=== PATIENT | female | born 1975 | race African-American/Black ===

== ENCOUNTER 2020-10-14 12:14 | Outpatient (REF) | payer OTHER, SELFPAY ==
--- NOTE | 2020-10-14 12:22 | XR_ITS ---
EXAMINATION: XR CHEST CLINICAL INFORMATION: Chest pain COMPARISON: Chest radiographs 11/04/2019, 09/09/2018 TECHNIQUE: 2 views of the chest were obtained. FINDINGS: The lungs are clear. There is no pneumothorax, airspace consolidation, pleural reaction, or effusion. The heart is normal in size. The costophrenic sulci are clear. The hilar and mediastinal contours and visualized bony structures are unremarkable. XR/XR chest 2V IMPRESSION: Unremarkable examination.
== END 2020-10-14 12:15 | disposition home or self-care (01) ==
LOC: HO.XRAY 12:14
PROVIDERS: PCP Student in an Organized Health Care Education/Training Program; Visit Provider Pediatrics
DX: R07.9 Chest pain, unspecified (principal)
CPT/HCPCS: 71046

== ENCOUNTER 2021-04-21 10:38 | Outpatient (REF) | payer OTHER, SELFPAY ==
[2021-04-21 11:57] LABS: Estimated Average Glucose 111 mg/dL; Hemoglobin A1c % 5.5 %
[2021-04-21 12:15] LABS: Alanine Aminotransferase 10 U/L (0-31); Albumin Level 4.3 g/dL (3.5-5.0); Alkaline Phosphatase 65 U/L (39-117); Anion Gap 12 (12-20); Aspartate Amino Transferase 17 U/L (5-31); Bilirubin Direct 0.2 mg/dL (0.0-0.5); Bilirubin Total 0.7 mg/dL (0.0-1.0); Blood Urea Nitrogen 12 mg/dL (9-16); Carbon Dioxide 27 mmol/L (22-29); Chloride 106 mmol/L (96-108); Cholesterol 178 mg/dL; Estimated Glomerular Filt Rate > 60; Glucose Random 91 mg/dL (60-115); HDL Cholesterol 55 mg/dL; LDL Cholesterol Calculated 110 mg/dl; Potassium 4.3 mmol/L (3.3-5.1); Sodium 141 mmol/L (135-145); Total Protein 7.6 g/dL (6.5-8.0); Triglycerides 66 mg/dL
== END 2021-04-21 10:39 | disposition home or self-care (01) ==
LOC: HO.LAB 10:38
PROVIDERS: PCP Student in an Organized Health Care Education/Training Program; Visit Provider Student in an Organized Health Care Education/Training Program
DX: Z83.3 Family history of diabetes mellitus (principal)
CPT/HCPCS: 36415; 80048; 80061; 80076; 83036

== ENCOUNTER 2021-08-17 09:49 | Outpatient (REF) | payer OTHER, SELFPAY ==
[2021-08-18 08:16] LABS: HIV AB/AG Nonreactive (Nonreactive); HIV Num 1 0.07 S/CO (0.00-0.99)
[2021-08-18 08:39] LABS: Syphilis Screen Nonreactive (Nonreactive)
== END 2021-08-17 09:50 | disposition home or self-care (01) ==
LOC: HO.LAB 09:49
PROVIDERS: Absent Provider Student in an Organized Health Care Education/Training Program; PCP Student in an Organized Health Care Education/Training Program; Visit Provider General Practice
DX: Z11.3 Encounter for screening for infections with a predominantly sexual mode of transmission (principal); Z11.4 Encounter for screening for human immunodeficiency virus [HIV]
CPT/HCPCS: 36415; 86780; 87389

== ENCOUNTER 2021-12-05 11:21 | Outpatient (REF) | payer OTHER, SELFPAY ==
--- NOTE | ~2021-12-05 | XR_ITS ---
EXAMINATION: XR CHEST CLINICAL INFORMATION: Contact with an suspected exposure to Covid 19 COMPARISON: Chest 10/14/2020 TECHNIQUE: 2 views of the chest were obtained. FINDINGS: The lungs are well-expanded and clear of acute pneumonic process. Heart size and pulmonary vascularity is normal. No gross bony abnormality seen. XR/XR chest 2V IMPRESSION: Unremarkable chest exam
== END 2021-12-05 11:22 | disposition home or self-care (01) ==
LOC: HO.XRAY 11:21
PROVIDERS: PCP Student in an Organized Health Care Education/Training Program; Visit Provider Student in an Organized Health Care Education/Training Program
DX: Z20.822 Contact with and (suspected) exposure to COVID-19 (principal)
CPT/HCPCS: 71046

== ENCOUNTER 2021-12-15 08:13 | Outpatient (REF) | payer OTHER, SELFPAY ==
--- NOTE | ~2021-12-15 | MM_ITS ---
EXAMINATION: MM SCREENING DIGITAL BREAST TOMOSYNTHESIS, BILATERAL CLINICAL INFORMATION: Screening. Asymptomatic. The lifetime risk of breast cancer based on the Tyrer-Cuzick Model is 5%. COMPARISON: Mammography: 05/11/2019 TECHNIQUE: Digital breast tomosynthesis is performed in both the craniocaudal and mediolateral oblique views along with computer-aided detection (CAD). Synthesized 2D images are generated from the tomosynthesis. FINDINGS: There are scattered areas of fibroglandular density (ACR BI-RADS breast composition Category b). There are no significant masses, abnormal calcifications, or other abnormalities. No architectural abnormality. No significant changes. MM/MM tomosynthesis screening BI IMPRESSION: No mammographic evidence of malignancy. ASSESSMENT: BI-RADS 1: Negative RECOMMENDATION: Routine annual mammography screening. This patient's information was entered into a reminder system with a target due date for their next mammogram.
[2021-12-15 09:27] LABS: Hematocrit 42.7 % (37.0-47.0); Hemoglobin 13.9 g/dl (12.0-16.0); Mean Corpuscular HGB Conc 32.6 g/dl (31.0-35.0); Mean Corpuscular Hemoglobin 28.1 pg (27.0-33.0); Mean Corpuscular Volume 86.4 fL (80.0-98.0); Mean Platelet Volume 10.3 fL (9.4-12.3); Platelet Count 205 X10*3/uL (160-400); Red Blood Count 4.94 X10*6/uL (4.20-5.50); Red Cell Distribution Width 12.3 % (11.0-16.0); White Blood Count 3.8 X10*3/uL (4.8-10.8)
[2021-12-15 09:46] LABS: Alanine Aminotransferase 12 U/L (0-31); Albumin Level 4.4 g/dL (3.5-5.0); Alkaline Phosphatase 71 U/L (39-117); Anion Gap 12 (12-20); Aspartate Amino Transferase 15 U/L (5-31); Bilirubin Direct 0.4 mg/dL (0.0-0.5); Bilirubin Total 1.2 mg/dL (0.0-1.0); Blood Urea Nitrogen 12 mg/dL (9-16); Calcium 10.1 mg/dL (8.4-10.2); Carbon Dioxide 27 mmol/L (22-29); Chloride 107 mmol/L (96-108); Cholesterol 187 mg/dL; Estimated Glomerular Filt Rate > 60; Glucose Random 84 mg/dL (60-115); HDL Cholesterol 58 mg/dL; LDL Cholesterol Calculated 117 mg/dl; Potassium 3.9 mmol/L (3.3-5.1); Sodium 142 mmol/L (135-145); Total Protein 7.5 g/dL (6.5-8.0); Triglycerides 60 mg/dL
[2021-12-15 10:09] LABS: Vitamin D 25-OH Total 19.7 ng/mL (>30)
== END 2021-12-15 08:14 | disposition home or self-care (01) ==
LOC: HO.LAB 08:13
PROVIDERS: PCP Student in an Organized Health Care Education/Training Program; Visit Provider Student in an Organized Health Care Education/Training Program
DX: Z13.6 Encounter for screening for cardiovascular disorders (principal)
CPT/HCPCS: 36415; 77063; 77067; 80048; 80061; 80076; 82306; 85027

== ENCOUNTER 2023-07-11 10:56 | Outpatient (REF) | payer OTHER, SELFPAY ==
[2023-07-12 02:16] LABS: CT PCR NOT DETECTED (Not Detect.); NG PCR NOT DETECTED (Not Detect.)
== END 2023-07-11 10:57 | disposition home or self-care (01) ==
LOC: HO.CHCLNP 10:56
PROVIDERS: Visit Provider Student in an Organized Health Care Education/Training Program
DX: R10.2 Pelvic and perineal pain (principal); Z11.3 Encounter for screening for infections with a predominantly sexual mode of transmission
CPT/HCPCS: 0353U; 36415; 81513

== ENCOUNTER 2023-08-15 10:49 | Outpatient (REF) | payer MEDICAID, SELFPAY ==
--- NOTE | ~2023-08-15 | US_ITS ---
EXAMINATION: US PELVIS COMPLETE CLINICAL INFORMATION: Pelvic pain COMPARISON: None TECHNIQUE: Transabdominal and transvaginal imaging was performed. FINDINGS: The uterus is of normal size and echogenicity measuring 7.1 x 2.2 x 4.0 cm. A regular homogeneous endometrium is identified measuring 0.3 cm. Trace fluid in the endometrial canal. Incidentally noted 1.2 cm myometrial cyst in the left lower uterine segment. Both ovaries are of normal size and echogenicity. The right measures 1.8 x 0.7 x 1.8 cm for a volume of 1.2 mL. The left measures 2.0 x 1.6 x 1.8 cm for a volume of 8.0 mL. There is no pelvic free fluid. US/US pelvic and transvaginal IMPRESSION: 1. Trace fluid in the endometrial canal. 2. Incidentally noted 1.2 cm myometrial cyst in the left lower uterine segment. 3. Unremarkable sonographic appearance of the ovaries.
== END 2023-08-15 10:50 | disposition home or self-care (01) ==
LOC: HO.US 10:49
PROVIDERS: PCP Student in an Organized Health Care Education/Training Program; Visit Provider Student in an Organized Health Care Education/Training Program
DX: R10.2 Pelvic and perineal pain (principal)
CPT/HCPCS: 76830; 76856

== ENCOUNTER 2023-09-04 10:11 | Outpatient (REF) | payer MEDICAID, SELFPAY ==
[2023-09-06 16:59] LABS: TS Negative Control Passed; TS Panel A 0; TS Panel B 14; TS Positive Control Passed; TSpotTB Positive (Negative)
== END 2023-09-04 10:12 | disposition home or self-care (01) ==
LOC: HO.CHCLDS 10:11
PROVIDERS: Visit Provider Student in an Organized Health Care Education/Training Program
DX: Z11.1 Encounter for screening for respiratory tuberculosis (principal)
CPT/HCPCS: 36415; 86481

== ENCOUNTER 2023-10-15 12:37 | Outpatient (REF) | payer MEDICAID, SELFPAY ==
[2023-10-15 14:15] LABS: Estimated Average Glucose 108 mg/dL; Hemoglobin A1c % 5.4 % (<6.0)
[2023-10-15 14:54] LABS: Alanine Aminotransferase 12 U/L (0-31); Albumin Level 4.4 g/dL (3.5-5.0); Alkaline Phosphatase 66 U/L (39-117); Anion Gap 10 (12-20); Aspartate Amino Transferase 16 U/L (5-31); Bilirubin Total 0.7 mg/dL (0.0-1.0); Blood Urea Nitrogen 12 mg/dL (9-16); Calcium 10.1 mg/dL (8.4-10.2); Carbon Dioxide 29 mmol/L (22-29); Chloride 106 mmol/L (96-108); Estimated Glomerular Filt Rate > 60; Glucose Random 86 mg/dL (60-115); Potassium 4.1 mmol/L (3.3-5.1); Sodium 141 mmol/L (135-145); Total Protein 7.8 g/dL (6.5-8.0)
[2023-10-15 15:13] LABS: TSH reflex Free T4 0.89 uIU/mL (0.32-4.0)
[2023-10-15 15:24] LABS: Folate 6.6 ng/mL (> or = 4.0); Vitamin B12 796 pg/mL (200-900)
== END 2023-10-15 12:38 | disposition home or self-care (01) ==
LOC: HO.CHCLDS 12:37
PROVIDERS: Visit Provider Internal Medicine
DX: G62.9 Polyneuropathy, unspecified (principal)
CPT/HCPCS: 36415; 73502; 80053; 82607; 82746; 83036; 84443

== ENCOUNTER 2023-10-15 13:19 | Outpatient (REF) | payer MEDICAID, SELFPAY ==
--- NOTE | ~2023-10-15 | XR_ITS ---
EXAMINATION: XR HIP, RIGHT CLINICAL INFORMATION: Right hip pain COMPARISON: None available. TECHNIQUE: Two views of the right hip. FINDINGS: A side plate and screws and intertrochanteric cannulated screw transfix the right proximal femur. No acute fracture or subluxation is evident. The right hip is located. There are no suspicious bone lesions. Incidental note is made of bony ankylosis of the symphysis pubis. XR/XR hip RT min 2V IMPRESSION: 1. Metallic hardware in the right proximal femur. No acute fracture. 2. Bony ankylosis of the symphysis pubis.
== END 2023-10-15 13:20 | disposition home or self-care (01) ==
LOC: HO.HMGCX 13:19
PROVIDERS: PCP Student in an Organized Health Care Education/Training Program; Visit Provider Internal Medicine
DX: M25.551 Pain in right hip (principal)
CPT/HCPCS: 73502

== ENCOUNTER 2024-03-04 11:38 | Outpatient (REF) | payer MEDICAID, SELFPAY ==
[2024-03-04 16:06] LABS: Bacterial Vaginosis PCR NEGATIVE (Negative); Candida Group PCR NOT DETECTED (Not Detect); Candida glab krusei PCR NOT DETECTED (Not Detect); Trichomonas vaginalis PCR NOT DETECTED (Not Detect)
[2024-03-04 16:35] LABS: CT PCR NOT DETECTED (Not Detect.); NG PCR NOT DETECTED (Not Detect.)
== END 2024-03-04 11:39 | disposition home or self-care (01) ==
LOC: HO.CHCLNP 11:38
PROVIDERS: Visit Provider Pediatrics
DX: N76.0 Acute vaginitis (principal)
CPT/HCPCS: 0352U; 0353U

== ENCOUNTER 2024-12-04 14:58 | Outpatient (REF) | payer MEDICAID, SELFPAY ==
--- NOTE | ~2024-12-04 | XR_ITS ---
EXAMINATION: XR CHEST 2 VIEWS HISTORY: TB screen COMPARISON: Comparison is made with the prior examination dated 12/05/2021. FINDINGS: PA and lateral views of the chest are submitted. The lungs are expanded and clear. There is no pleural effusion, pneumothorax, or pulmonary vascular congestion. The heart is normal in size. The bones are intact. XR/XR chest 2V IMPRESSION: No acute cardiopulmonary abnormality. Electronically signed by: Bala Vick MD 12/07/2024 09:01 AM JANE
--- OUTSIDE RECORDS SUMMARY | 2024-12-04 17:09 | XMS_ITS | Clinical Summary ---
Author Organization [employer] Address [address] [place] [address] Care Team Providers Care Cokeman Name Role Phone Charlotte Hernandez MD Primary Care Provider Allergies Active Allergy Reactions Criticality Noted Date Comments Sulfa Antibiotics Nausea Only 09/02/2018 Medications ibuprofen 600 MG tablet TAKE 1 TABLET BY MOUTH 3 TIMES DAILY. 90 tablet 08/12/2023 Active pantoprazole (Protonix) 20 MG EC tablet Take 1 tablet (20 mg) by mouth before breakfast. Do not crush, chew, or split. 30 tablet 11 09/16/2024 Active loratadine (Claritin) 10 MG tablet Take 1 tablet (10 mg) by mouth Once per day. 90 tablet 3 09/16/2024 Active Active Problems Problem Noted Date Diagnosed Date Lateral epicondylitis of right elbow 09/16/2024 Screening-pulmonary TB 07/11/2023 Encounters Date Type Department Care Team Description 09/16/2024 9:30 AM EST Office Visit [facility] [address] [place] [address] Charlotte Hernandez MD PE (physical exam), annual (Primary Dx); Dietary counseling; Exercise counseling; Screening-pulmonary TB; Encounter for screening mammogram for breast cancer; Lateral epicondylitis of right elbow 09/16/2024 Travel from Last 3 Months Immunizations Name Administration Dates Next Due Influenza injectable quadriv alent IIV4 with preservative 02/19/2018 Influenza injectable quadriv alent preservative free 07/11/2023,01/02/2022,11/30/2020 MMR 02/19/2018 TD (adult), 2 Lf tetanus tox oid, preservative free, adsorbed 02/19/2018 Tdap 07/11/2023 Varicella 02/19/2018 Social History Tobacco Use Types Packs/Day Years Used Date Smoking Tobacco: Never Smokeless Tobacco: Never Tobacco Cessation:Counseling Given: Not Answered Alcohol Use Standard Drinks/Week Comments Never 0 (1 standard drink = 0.6 oz pur e alcohol) Alcohol Answer Date Recorded Frequency of Alcohol Consumption Not on file 07/11/2023 Average Number of Drinks Not on file 023 Frequency of Binge Drinking Not on file 02/2023 Score 0 07/11/2023 Depression Answer Date Recorded Patient Health Questionnaire-9 Score 0 09/16/2024 Patient Health Questionnaire-9 Score 0 09/16/2024 Last PHQ-9: Questionnaire Data Not on file 1 11/17/2023 Housing Stability Answer Date Recorded What is your housing situation today? I have dong fernandez 09/02/[address] you li ve. Do you have problems with any of the following? None of the above 09/02/2024 Food Insecurity Answer Date Recorded Within the past 12 months, y ou worried that your food would run out before you got money to buy more: Never True 09/02/2024 Within the past 12 months,th e food you bought just didn't last and you didn't have enough money to get more: Never True Transportation Answer Date Recorded In the past 12 months, has l ack of transportation kept you from medical appts, meetings, work or from getting things needed for daily living? No 09/02/2024 Utilities Answer Date Recorded In the past 12 months, has t he electric, gas, oil or water company threatened to shut off services in your home? No 09/02/2024 Depression Answer Date Recorded Patient Health Questionnaire-2 Score 0 09/16/2024 Internet Access Answer Date Recorded Internet Access Q1 No 09/16/2024 Internet Access Q2 I do not want or need it 09/06 Comments Unknown Sex and Gender Information Value Date Recorded Sex Assigned at Female 08/06/2022 10:34 AM EDT Legal Sex Female 10:34 AM EDT Gender Identity Female 08/06/2022 10:34 AM EDT Sexual Orientation Straight 08/06/2022 10 :34 AM EDT Last Filed Vital Signs Vital Sign Reading Time Taken Comments Blood Pressure 135/74 09/16/2024 9:52 AM EST Pulse 69 09/16/2024 9:52 AM EST Temperature 36.3 ??C (97.3 ??F) 09/16/2024 9:52 AM ES T Respiratory Rate 18 09/16/2024 9:52 AM EST Oxygen Saturation 100% 09/16/2024 9:52 AM EST Inhaled Oxygen Concentration - - Weight 67.1 kg (148 lb) 09/16/2024 9:52 AM EST Height 160 cm (5' 3 ) 09/16/2024 9:52 AM EST Body Mass Index 26.22 09/16/2024 9:52 AM EST Plan of Treatment Health Maintenance Due Date Last Done Comments CT Colonography 1973 Colonoscopy 1973 Colorectal Cancer Screening 1973 FIT DNA/Cologuard 1973 FIT 1973 FOBT 1973 Sigmoidoscopy 1973 Family Planning (PISQ) 1988 Hepatitis C Screening 1991 Hepatitis B Vaccines (1 of 3 - 19+ 3-dose series) 1992 Pneumococcal Vaccine: 50+ Years (1 of 1 - PCV) 2023 Zoster Vaccines (1 of 2) 2023 Mammogram 12/16/2023 12/15/2021, 05/12/2019 COVID-19 Vaccine ( - season) 2024 03/09/2022, 04/18/2021, 03/28/2021 Influenza Vaccine (#1) 2024 , 01/02/2022, 11/30/2020, Additional history exists Pap Smear 01/02/2025 01/02/2022 Alcohol/Substance Use Screening 09/16/2025 09/16/2024 Depression Screening 09/16/2025 09/16/2024, 09/16/20 24 SDOH Screening 09/16/2025 09/16/2024 Tobacco Screening 09/16/2025 09/16/2024 Cervical Cancer Screening 01/02/2027 HPV/Cotest 01/02/2027 01/02/2022, 09/02/2018 DTaP/Tdap/Td Vaccines (2 - Td or Tdap) 07/11/2033 07/11/2023, 02/19/2018 RSV Patients and Patients Aged 60 years or older (1 - 1-dose 75+ series) 2048 HIV Screening Completed 08/17/2021 HIB Vaccines Aged Out No longer eligi ble based on patient's age to complete this topic HPV Vaccines Aged Out No longer eligi ble based on patient's age to complete this topic Hepatitis A Vaccines Aged Out No long er eligible based on patient's age to complete this topic IPV Vaccines Aged Out No longer eligi ble based on patient's age to complete this topic Meningococcal Vaccine Aged Out No praveen lucille eligible based on patient's age to complete this topic RSV under 20 months Aged Out No longe r eligible based on patient's age to complete this topic Rotavirus Vaccines Aged Out No longer eligible based on patient's age to complete this topic Procedures Procedure Name Priority Date/Time Associated Diagnosis Comments THINPREP IMAGING PAP AND HPV MRNA E6/E7 WITH REFLEX TO HPV 16,18/45 Routine 01/02/2022 1:22 PM EDT MAMMOGRAM GENERIC Routine 12/15/2021 8:2 3 AM EST ZZZ HISTORICAL HIV AB/AG Routine 08/17/2021 10:05 AM EST from Last 3 Months or Most Recently Relevant to Health Maintenance Results * THINPREP TIS PAP AND HPV mRNA E6/E7 WITH REFLEX TO HPV 16,18/45 (01/02/2022 1:22 PM EDT) Clinical Information: None given [facility] COMMENT SEE COMMENT [facility] Comment: EXPLANATORY NOTE: ? The Pap is a screening test for cervical cancer. It is ?? not a diagnostic test and is subject to false negative ?? and false positive results. It is most reliable when a ?? satisfactory sample, regularly obtained, is submitted ?? with relevant clinical findings and history, and when ?? the Pap result is evaluated along with historic and ?? current clinical information. ?? COMMENT: SEE COMMENT [facility] Comment: This case could not be evaluated with computer assisted technology. The slide was manually screened according to routine procedures. Budget Analyst: SEE COMMENT [facility] Comment: ED, CT(ASCP) CT screening location: ?? [facility] ?? [address] [place] [address] ?? [place] [address] HPV nRNA E6/E7 Not Detected Not Detected [facility] Comment: Methodology: Felting Machine Operator Helper-Mediated Amplification This assay detects E6/E7 viral messenger RNA (mRNA) from 14 high-risk HPV types (16,18,31,33,35,39,45,51,52,56,58,59,66,68). ? The analytical performance characteristics of this assay have been determined by [employer]. The modifications have not been cleared or approved by the FDA. This assay has been validated pursuant to the CLIA regulations and is used for clinical purposes. ?? For additional information, please refer to http://education.Fundation/faq/IPK902i9 (This link if provided for information/ educational purposes only.) Interpretation/Re sult: Negative for intraepithelial lesion or malignancy. [facility] LMP: NONE GIVEN [facility] Prev. BX: NONE [facility]IV[facility] Prev. PAP: NONE GIVEN [facility] SOURCE: None given [facility] Statement Of Adequacy: SEE COMMENT [facility] Comment: Satisfactory for evaluation. Endocervical/transformation zone component present. Partially obscuring inflammation Age and/or menstrual status not provided 01/02/2022 1:22 PM EDT us Socorro Rodríguez CNM LAB PATHOLOGY ORDERABLES Final Result [facility] [address] [place] [address], * Mammography Report 1 (12/15/2021 8:23 AM EST) Anatomical Region Laterality Modality Breast Bilateral Mammography 12/15/2021 8:23 AM EST Narrative 12/18/2021 10:22 AM EDT Refer to the Notes tab for result details [facility] Procedure: Mammography Report 1 Procedure Note Provider, MD Cash - 12/30/2022 Refer to the Notes tab for result details [facility] Procedure: Mammography Report 1 us Charlotte Hernandez MD IMG BI PROCEDURES Final Result * HIV AB/AG (08/17/2021 10:05 AM EST) Pathologist [facility] HIV AB/AG Nonreactive Nonreactive [facility] Comment: HIV-1 p24 Ag and/or HIV-1/HIV-2 Ab not detected. ?? A test result that is nonreactive does not exclude the possibility of exposure to or infection with HIV-1 and/or HIV-2. Nonreactive results in this assay for individuals with prior exposure to HIV-1 and/or HIV-2 may be due to antigen and antibody levels that are below the limit of detection of this assay. ?? The [employer] Sand [employer] HIV Ag/Ab Combo assay result and supplemental assay results should be interpreted in conjunction with the patient's clinical presentation, history and other laboratory results. ??If the results are inconsistent with clinical evidence, additional testing is suggested to confirm the result. 08/17/2021 10:0 5 AM EST us Charlotte Hernandez MD HISTORICAL/NON ORDERABLE LABS Fi nal Result [facility] [address] from Last 3 Months or Most Recently Relevant to Health Maintenance Insurance [facility] [employer] Care Teams Cokeman Relationship Specialty Start Date End Date Charlotte Hernandez MD [address] [place] [id number] PCP - General Family Medicine 09/01/18
--- OUTSIDE RECORDS SUMMARY | 2024-12-04 17:09 | XMS_ITS | Clinical Summary ---
Author Organization [facility] Address [address] [place] [address] Care Team Providers Care Line Erector Apprentice Name Role Phone Vishnu Tellez MD Primary Care Provide r Social History Tobacco Use Types Packs/Day Years Used Date Smoking Tobacco: Never Assessed Comments Unknown Sex and Gender Information Value Date Recorded Sex Assigned at Not on file Legal Sex Female 6:15 AM EST Gender Identity Not on file Sexual Orientation Not on file Plan of Treatment Health Maintenance Due Date Last Done Comments Breast Cancer Screening 1973 DTaP,Tdap,and Td Vaccines (1 - Tdap) 1992 Hepatitis B Vaccines (1 of 3 - 19+ 3-dose series) 1992 Cervical Cancer Screening: P ap Smear 1994 Pneumococcal Vaccine: 50+ Ye ars (1 of 1 - PCV) 2023 Zoster Vaccines (1 of 2) 2023 COVID-19 Vaccine (1 - 2023-2 5 season) 2024 Influenza Vaccine (#1) 2024 HIB Vaccines Aged Out No longer eligi [...] on patient's age to complete this topic MMR Vaccines Aged Out No longer eligi ble based on patient's age to complete this topic Meningococcal ACWY Vaccine Aged Out N o longer eligible based on patient's age to complete this topic Meningococcal B Vacine Aged Out No lo nger eligible based on patient's age to complete this topic Pneumococcal Vaccine: Pediat rics (0 to 5 Years) and At-Risk Patients (6 to 64 Years) Aged Out No longer eligible b ased on patient's age to complete this topic RSV Immunization Patients Un chery 20 months Aged Out No longer eligible b ased on patient's age to complete this topic Varicella Vaccines Aged Out No longer eligible based on patient's age to complete this topic Care Teams Line Erector Apprentice Relationship Specialty Start Date End Date Vishnu Tellez MD PCP - General Internal Medicine 06/24/18
== END 2024-12-04 14:59 | disposition home or self-care (01) ==
LOC: HO.XRAY 14:58
PROVIDERS: Visit Provider Student in an Organized Health Care Education/Training Program
DX: Z11.1 Encounter for screening for respiratory tuberculosis (principal)
CPT/HCPCS: 71046

== ENCOUNTER → 2024-12-04 15:00 | Outpatient (BNV) | payer MEDICAID, SELFPAY | PROVIDERS: Visit Provider Radiology Diagnostic Radiology | DX: Z11.1 Encounter for screening for respiratory tuberculosis (principal) | CPT/HCPCS: 71046 ==

== ENCOUNTER 2025-05-12 11:34 | Outpatient (REF) | payer OTHER, SELFPAY ==
--- OUTSIDE RECORDS SUMMARY | 2025-05-13 12:14 | XMS_ITS | Clinical Summary ---
Author Organization [facility] ity Address [address] [place] [address] Care Team Providers Care Installer Inspector Final Name Role Phone Vishnu Tellez MD Primary [...] Vaccine (1 - 2023-2 5 season) 2024 Depression Screening 10/07/2024 Influenza Vaccine (#1) 2025 HIB Vaccines Aged Out No longer eligi [...] age to complete this topic Meningococcal B Vaccine Aged Out No l onger eligible based on patient's age to complete this topic RSV Immunization Patients Un chery 20 months Aged Out No longer eligible b ased on patient's age to complete this topic Varicella Vaccines Aged Out No longer eligible based on patient's age to complete this topic Care Teams Installer Inspector Final Relationship Specialty Start Date End Date Vishnu Tellez MD PCP - General Internal Medicine 06/24/18
--- OUTSIDE RECORDS SUMMARY | 2025-05-13 12:14 | XMS_ITS | Clinical Summary ---
Author Organization [employer] Address [address] [facility] [address] [place] [address] Care Team Providers Care Director Pharmaceutical Name Role Phone Charlotte Hernandez MD Primary Care Provider [phone] Allergies Active Allergy Reactions Criticality Noted Date [...] Encounters Date Type Department Care Team Description 05/12/2025 5:20 PM EDT Office Visit [facility] [address] [place], [place] [id number] Maryam Cantu NP Pelvic pain (Primary Dx); Abdominal pain in female patient; Other microscopic hematuria 05/12/2025 Travel 05/12/2025 Telephone [facility] [address] [place], [place] [phone] Charlotte Hernandez MD Nurse Triage 03/05/2025 Telephone [facility] [address] [place] [address] Charlotte Hernandez MD Nurse Triage from Last 3 Months Immunizations Immunization Administration Dates Next Due Influenza injectable quadriv alent IIV4 with preservative 02/19/2018 Influenza injectable quadriv alent preservative free 07/11/2023,01/02/2022,11/30/2020 MMR 02/19/2018 TD (adult), 2 Lf tetanus tox oid, preservative free, adsorbed 02/19/2018 Tdap 07/11/2023 Varicella 02/19/2018 Social History Tobacco Use Types Packs/Day Years Used Date Smoking Tobacco: Never Passive Smoke Exposure: Never Smokeless Tobacco: Never Tobacco Cessation:Counseling Given: [...] Sign Reading Time Taken Comments Blood Pressure 138/76 05/12/2025 4:58 PM EDT Pulse 65 05/12/2025 4:58 PM EDT Temperature 36.2 C (97.2 F) 05/12/2025 4:58 PM EDT Respiratory Rate 20 05/12/2025 4:58 PM EDT Oxygen Saturation 97% 05/12/2025 4:58 PM EDT Inhaled Oxygen Concentration - - Weight 70.2 kg (154 lb 12.8 oz) 05/12/2025 4:58 PM EDT Height 160 cm (5' 3 ) 05/12/2025 4:58 PM EDT Body Mass Index 27.42 05/12/2025 4:58 PM EDT Plan of Treatment Health Maintenance Due Date [...] Mammogram 12/16/2023 12/15/2021, 05/12/2019 COVID-19 Vaccine ( season) 2024 03/09/2022, 04/18/2021, 03/28/2021 Influenza Vaccine (#1) 2025 , 01/02/2022, 11/30/2020, Additional history exists Alcohol/Substance Use Screening 09/16/2025 09/16/2024 Depression Screening 09/16/2025 09/16/2024, 09/16/20 24 Disability Screening 09/16/2025 09/16/2024 SDOH Screening 09/16/2025 09/16/2024 Tobacco Screening 05/13/2026 05/13/2025 Cervical Cancer Screening 01/02/2027 HPV/Cotest 01/02/2027 01/02/2022, 09/02/2018 Pap Smear 01/02/2027 01/02/2022 DTaP/Tdap/Td Vaccines (2 - Td or Tdap) [...] Procedure Name Priority Date/Time Associated Diagnosis Comments POCT URINALYSIS DIPSTICK Routine 05/12/2025 5:23 PM EDT Abdominal pain in female patient THINPREP IMAGING PAP AND HPV MRNA E6/E7 WITH REFLEX TO HPV 16,18/45 Routine 01/02/2022 1:22 PM EDT MAMMOGRAM GENERIC Routine 12/15/2021 8:2 3 AM EST ZZZ HISTORICAL HIV AB/AG Routine 08/17/2021 10:05 AM EST from Last 3 Months or Most Recently Relevant to Health Maintenance Results * (ABNORMAL) POCT Urinalysis (05/12/2025 5:23 PM EDT) Color, UA Yellow Clarity, UA Clear Glucose, UA Negative Bilirubin, UA Negative Ketones, UA Negative Spec Grav, UA 1.015 Blood, UA Positive(A) Negative, None Detected Comment:trace-intact pH, UA 7.0 Protein, UA Negative Urobilinogen, UA 1.0 Leukocytes, UA Negative Negative, Rare, Trace Nitrite, UA Negative Negative, None Detected Appearance, UA Yellow QC Media Lot # [id number] Lot# Expiration Date [id number] Urine 05/12/2025 5:23 PM EDT Maryam Cantu NP POINT OF CARE TEST ENTER/EDIT O RDERABLES Final Result * THINPREP TIS PAP AND HPV mRNA E6/E7 WITH REFLEX TO HPV 16,18/45 (01/02/2022 1:22 PM EDT) Clinical Information: None given [facility] COMMENT SEE COMMENT [facility] Comment: EXPLANATORY NOTE: The Pap is a screening test for cervical cancer. It is not a diagnostic test and is subject to false negative and false positive results. It is most reliable when a satisfactory sample, regularly obtained, is submitted with relevant clinical findings and history, and when the Pap result is evaluated along with historic and current clinical information. COMMENT: SEE COMMENT [facility] Comment: This case could not be evaluated with computer assisted technology. The slide was manually screened according to routine procedures. Flat Sorter Processor: SEE COMMENT [facility] Comment: ED, CT(ASCP) CT screening location: [place] [id number] HPV nRNA E6/E7 Not Detected Not Detected [facility] Comment: Methodology: Retail Salesperson-Mediated Amplification This assay detects E6/E7 viral messenger RNA (mRNA) from 14 high-risk HPV types (16,18,31,33,35,39,45,51,52,56,58,59,66,68). The analytical performance characteristics of this assay have been determined by [facility]. The modifications have not been cleared or approved by the FDA. This assay has been validated pursuant to the CLIA regulations and is used for clinical purposes. For additional information, please refer to http://education.Certus/faq/TXU893f2 (This link if provided for information/ educational purposes only.) Interpretation/Re sult: Negative for intraepithelial lesion or malignancy. [facility] LMP: NONE [facility]IVEN [facility] Prev. BX: NONE [facility]IVEN [facility] Prev. PAP: NONE GIVEN [facility] SOURCE: None given [facility] Statement Of Adequacy: SEE COMMENT [facility] Comment: Satisfactory for evaluation. Endocervical/transformation zone component present. Partially obscuring inflammation Age and/or menstrual status not provided 01/02/2022 1:22 PM EDT Socorro Rodríguez [facility] PATHOLOGY ORDERABLES Final Result Performing Organization Address City/State/[facility] Co de Phone Number [facility] [address] * Mammography Report 1 (12/15/2021 8:23 AM EST) Anatomical Region Laterality Modality Breast Bilateral Mammography 12/15/2021 8:23 AM EST Narrative 12/18/2021 10:22 AM EDT Refer to the Notes tab for result details [facility] Procedure: Mammography Report 1 Procedure Note Provider, MD Cash - 12/30/2022 Refer to the Notes tab for result details [facility] Procedure: Mammography Report 1 Charlotte Hernandez MD IMG BI PROCEDURES Final Result * HIV AB/AG (08/17/2021 10:05 AM EST) HIV AB/AG Nonreactive Nonreactive [facility] Comment: HIV-1 p24 Ag and/or HIV-1/HIV-2 Ab not detected. A test result that is nonreactive does not exclude the possibility of exposure to or infection with HIV-1 and/or HIV-2. Nonreactive results in this assay for individuals with prior exposure to HIV-1 and/or HIV-2 may be due to antigen and antibody levels that are below the limit of detection of this assay. The [employer] Operator Assistant HIV Ag/Ab Combo assay result and supplemental assay results should be interpreted in conjunction with the patient's clinical presentation, history and other laboratory results. If the results are inconsistent with clinical evidence, additional testing is suggested to confirm the result. 08/17/2021 10:0 5 AM EST us Charlotte Hernandez MD HISTORICAL/NON ORDERABLE LABS Fi nal Result [facility] [address] from Last 3 Months or Most Recently Relevant to Health Maintenance Insurance [facility] [employer] [facility] Care Teams Director Pharmaceutical Relationship Specialty Start Date End Date Charlotte Hernandez MD [address] [place] [id number] PCP - General Family Medicine 09/01/18
--- OUTSIDE RECORDS SUMMARY | 2025-05-13 12:14 | XMS_ITS ---
Author Name [facility] Organization Unknown Care Team Organization Name Specialty Phone Email Start Date End Da te [facility] Jaylin Dodson MD Primary Care 08/06/2023 05/25/2024
[2025-05-13 13:37] LABS: Bacterial Vaginosis PCR NEGATIVE (Negative); Candida Group PCR NOT DETECTED (Not Detect); Candida glab krusei PCR NOT DETECTED (Not Detect); Trichomonas vaginalis PCR NOT DETECTED (Not Detect)
[2025-05-13 14:09] LABS: CT PCR NOT DETECTED (Not Detect.); NG PCR NOT DETECTED (Not Detect.)
[2025-05-18 10:49] LABS: Mycoplasma hominis PCR Detected (Not Detected)
== END 2025-05-12 11:35 | disposition home or self-care (01) ==
LOC: HO.HHCLNP 11:34
PROVIDERS: Visit Provider Nurse Practitioner
DX: Z11.3 Encounter for screening for infections with a predominantly sexual mode of transmission (principal); Z11.8 Encounter for screening for other infectious and parasitic diseases; R10.9 Unspecified abdominal pain
CPT/HCPCS: 81515; 87086; 87491; 87563; 87591; 87798

== ENCOUNTER 2025-06-17 10:06 | Outpatient (REF) | payer OTHER, SELFPAY ==
--- OUTSIDE RECORDS SUMMARY | 2025-06-17 09:45 | XMS_ITS | Encounter Summary ---
Author Organization [employer] Address [address] [facility] 7 [place] [address] Care Team Providers Care Computer Lab Assistant Name Role Phone Charlotte Hernandez MD Primary Care Provider [phone] Reason for Referral * Consultation (Routine) - Pending Review Specialty Diagnoses / Procedures Referred By Parrish paul Referred To Contact Gastroenterology Diagnoses Encounter for screening for malignant neoplasm of colon Charlotte Hernandez MD [address] [place] [address] Phone: tel: fax: Referral ID Status Reason Start Date Expiration Date Visits Requested Visits Authorized [id number] Pending Review Specialty Services Required 06/17/2025 06/17/2026 1 1 * Consultation (Routine) - Pending Review Specialty Diagnoses / Procedures Referred By Parrish paul Referred To Contact Gastroenterology Diagnoses Gastroesophageal reflux disease without esophagitis Charlotte Hernandez MD [address] [place] [address] Phone: tel: fax: Referral ID Status Reason Start Date Expiration Date Visits Requested Visits Authorized [id number] Pending Review Specialty Services Required 06/17/2025 06/17/2026 1 1 Reason for Visit * Reason Comments Abdominal Pain Encounter Details Date Type Department Care Team (Latest Contact Info) Description 06/17/2025 9:45 AM EDT Office Visit [facility] [address] [place] [address] Charlotte Hernandez MD [address] [place] [address] Gastroesophageal reflux disease without esophagitis (Primary Dx); Class 1 obesity without serious comorbidity in adult, unspecified BMI, unspecified obesity type; Encounter for screening for malignant neoplasm of colon Social History Tobacco Use Types Packs/Day Years [...] Orientation Straight 08/06/2022 10 :34 AM EDT documented as of this encounter Last Filed Vital Signs Vital Sign Reading Time Taken Comments Blood Pressure 135/76 06/17/2025 9:23 AM EDT Pulse 74 06/17/2025 9:23 AM EDT Temperature 36.6 C (97.8 F) 06/17/2025 9:23 AM EDT Respiratory Rate 20 06/17/2025 9:23 AM EDT Oxygen Saturation - - Inhaled Oxygen Concentration - - Weight 68.9 kg (152 lb) 06/17/2025 9:23 AM EDT Height 160 cm (5' 3 ) 06/17/2025 9:23 AM EDT Body Mass Index 26.93 06/17/2025 9:23 AM EDT documented in this encounter Progress Notes * Charlotte Hernandez MD - 06/17/2025 9:45 AM EDT Subjective Patient ID: Eloina Clancy is a 49 y.o. female who presents for Abdominal Pain. Abdominal Pain This is a recurrent problem. The onset quality is gradual. The problem occurs constantly. The pain is located in the epigastric region. The pain is at a severity of 6/10. The pain is moderate. The quality of the pain is burning. The abdominal pain does not radiate. Associated symptoms include belching. Pertinent negatives include no headaches. The pain is relieved by Nothing. She has tried protonpump inhibitors for the symptoms. The treatment provided mild relief. Review of Systems Constitutional: Negative. Respiratory: Negative. Negative for shortness of breath. Cardiovascular: Negative for chest pain and palpitations. Gastrointestinal: Positive for abdominal pain. Genitourinary: Negative. Musculoskeletal: Negative for neck pain. Neurological: Negative for headaches. Objective Physical Exam Constitutional: Appearance: Normal appearance. Cardiovascular: Rate and Rhythm: Normal rate and regular rhythm. Pulses: Normal pulses. Heart sounds: Normal heart sounds. Pulmonary: Effort: Pulmonary effort is normal. Abdominal: General: Abdomen is flat. Neurological: Mental Status: She is alert. Assessment/Plan Diagnoses and all orders for this visit: Gastroesophageal reflux disease without esophagitis Comments: Started On nexium daily HPylori test ordered Referred to GI Orders: - Helicobacter pylori Antigen, EIA, Stool; Future - Referral to Gastroenterology; Future Class 1 obesity without serious comorbidity in adult, unspecified BMI, unspecified obesity type Maintain a low-sodium diet (less than 2 grams per day). Maintain a regular cardiovascular exercise program. Advised to maintain a low-fat, low-cholesterol diet. Counseled regarding importance of weight loss. Counseled re: potential co-morbidities including cardiovascular disease. - Basic Metabolic Panel; Future - Lipid Panel, Standard; Future - Hepatic Function Panel; Future Other orders - esomeprazole (NexIUM) [address] capsule; Take 1 capsule (20 mg) by mouth before breakfast. Do not open capsule. documented in this encounter Plan of Treatment Scheduled Orders Name Type Priority Associated Diagnoses Orde r Schedule Helicobacter pylori Antigen, EIA, Stool Lab Routine Gastroesophageal reflux disease without esophagitis Expected: 06/17/2025, Expires: 06/17/2026 Basic Metabolic Panel Lab Routine Class 1 obesity without serious comorbidity in adult, unspecified BMI, unspecified obesity type Expected: 06/17/2025 (Approximate), Expires: 06/17/2026 Lipid Panel, Standard Lab Routine Class 1 obesity without serious comorbidity in adult, unspecified BMI, unspecified obesity type Expected: 06/17/2025 (Approximate), Expires: 06/17/2026 Hepatic Function Panel Lab Routine Class 1 obesity without serious comorbidity in adult, unspecified BMI, unspecified obesity type Expected: 06/17/2025 (Approximate), Expires: 06/17/2026 Scheduled Referrals Name Type Priority Associated Diagnoses Order Schedule Referral to Gastroenterology Outpatient Referral Routine Gastroesophageal reflux disease without esophagitis Expected: 06/17/2025 (Approximate), Expires: 06/17/2026 Referral to Gastroenterology Outpatient Referral Routine Encounter for screening for malignant neoplasm of colon Expected: 06/17/2025 (Approximate), Expires: 06/17/2026 documented as of this encounter Visit Diagnoses Diagnosis Gastroesophageal reflux disease without esophagitis- Primary Esophageal reflux Class 1 obesity without serious comorbidity in adult, unspecified BMI, unspecified obesity type Encounter for screening for malignant neoplasm of colon documented in this encounter Additional Health Concerns Assessment Noted Time PHQ-9 Depression Total Score: 0 09/16/20 24 10:04 AM EST documented as of this encounter Care Teams Computer Lab Assistant Relationship Specialty Start Date End Date Charlotte Hernandez MD [address] [place] [address] PCP - General Family Medicine 09/01/18 documented as of this encounter
--- OUTSIDE RECORDS SUMMARY | 2025-06-17 12:19 | XMS_ITS | Encounter Summary ---
Author Organization [employer] Address [address] [facility] [address] [place] [address] Care Team Providers Care Frameman Name Role Phone Charlotte Hernandez MD Primary Care Provider [phone] Encounter Details Date Type Department Care Team (Latest Contact Info) Description 06/16/2025 Travel Social History Tobacco Use Types Packs/Day Years Used Date Smoking Tobacco: Never Passive Smoke Exposure: Never Smokeless Tobacco: Never Alcohol Use Standard Drinks/Week Comments Never 0 [...] AM EDT documented as of this encounter Plan of Treatment Not on file documented as of this encounter Visit Diagnoses Not on filedocumented in this encounter Additional Health Concerns Assessment Noted Time PHQ-9 Depression Total Score: 0 09/16/20 24 10:04 AM EST documented as of this encounter Care Teams Frameman Relationship Specialty Start Date End Date Charlotte Hernandez MD [address] [place] [id number] PCP - General Family Medicine 09/01/18 documented as of this encounter
--- OUTSIDE RECORDS SUMMARY | 2025-06-17 12:19 | XMS_ITS | Clinical Summary ---
Author Organization [employer] Address [address] [facility] [address] [place] [address] Care Team Providers Care Bundle Clerk Name Role Phone Charlotte Hernandez MD Primary Care Provider Allergies Active Allergy Reactions Criticality Noted Date Comments Sulfa Antibiotics Nausea Only 09/02/2018 Medications ibuprofen 600 MG tablet TAKE 1 TABLET BY MOUTH 3 TIMES DAILY. 90 tablet 08/12/20 23 Active loratadine (Claritin) 10 MG tablet Take 1 tablet (10 mg) by mouth Once per day. 90 tablet 3 09/16/20 24 Active esomeprazole (NexIUM) [address] capsule Take 1 capsule (20 mg) by mouth before breakfast. Do not open capsule. 30 capsule 11 06/17/20 25 026 Active pantoprazole (Protonix) 20 MG EC tablet Take 1 tablet (20 mg) by mouth before breakfast. Do not crush, chew, or split. 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 Take with a full glass of water and do not lie down for at least 30 minutes after. 14 tablet 05/18/20 25 025 Active Problems Problem Noted Date Diagnosed Date Lateral epicondylitis of right elbow 09/16/2024 Screening-pulmonary TB 07/11/2023 Encounters Date Type Department Care Team Description 06/17/2025 9:45 AM EDT Office Visit [facility] [address] [place] [address] Charlotte Hernandez MD Gastroesophageal reflux disease without esophagitis (Primary Dx); Class 1 obesity without serious comorbidity in adult, unspecified BMI, unspecified obesity type; Encounter for screening for malignant neoplasm of colon 06/16/2025 Travel 06/15/2025 Telephone [facility] [address] [place] [address] Charlotte Hernandez MD Chart Prep 06/09/2025 Patient Outreach [facility] [address] [place] [phone] Charlotte Hernandez MD Pre-visit Planning (Pre visit planning LVM ) 05/14/2025 Results Follow-Up [facility] [address] [place] [phone] Maryam Cantu NP Bacterial Vaginosis, Mycoplasma/Ureaplasma Panel 05/12/2025 5:20 PM EDT Office Visit [facility] [address] [place] [phone] Maryam Cantu NP Pelvic pain (Primary Dx); Abdominal pain in female patient; Other microscopic hematuria 05/12/2025 Travel 05/12/2025 Telephone [facility] [address] [place] [address] Charlotte Hernandez MD Nurse Triage from Last [...] Frequency of Binge Drinking Not on file 100 02/2023 Score 0 07/11/2023 Depression Answer Date [...] 20 06/17/2025 9:23 AM EDT Oxygen Saturation 97% 05/12/2025 4:58 PM EDT Inhaled Oxygen Concentration - - Weight 68.9 kg (152 lb) 06/17/2025 9:23 AM EDT Height 160 cm (5' 3 ) 06/17/2025 9:23 AM EDT Body Mass Index 26.93 06/17/2025 9:23 AM EDT Plan of Treatment Health Maintenance Due Date Last Done Comments CT Colonography 1973 Colonoscopy 1973 Colorectal Cancer Screening 1973 FIT DNA/Cologuard 1973 FIT 1973 FOBT 1973 Lipid Panel 1973 Sigmoidoscopy 1973 Family Planning (PISQ) 1988 Hepatitis C Screening 1991 Hepatitis B Vaccines (1 of 3 - 19+ 3-dose series) 1992 Pneumococcal Vaccine: 50+ Years (1 of 1 - PCV) 2023 Zoster Vaccines (1 of 2) 2023 Mammogram 12/16/2023 12/15/2021, 05/12/2019 COVID-19 Vaccine ( season) 2025 03/09/2022, 04/18/2021, 03/28/2021 Influenza Vaccine (#1) 2025 , 01/02/2022, 11/30/2020, Additional history exists Alcohol/Substance Use Screening 09/16/2025 09/16/2024 Depression Screening 09/16/2025 09/16/2024, 09/16/20 24 Disability Screening 09/16/2025 09/16/2024 SDOH Screening 09/16/2025 09/16/2024 Tobacco Screening 06/17/2026 06/17/2025 Cervical Cancer Screening 01/02/2027 HPV/Cotest 01/02/2027 01/02/2022, [...] Procedure Name Priority Date/Time Associated Diagnosis Comments MYCOPLASMA/UREAPLASM A PANEL Routine 05/12/2025 6:02 PM EDT BACTERIAL VAGINOSIS PANEL Routine 05/12/2025 6:02 PM EDT CULTURE, URINE, ROUTINE Routine 05/12/2025 6:02 PM EDT Abdominal pain in female patient CHLAMYDIA/N. GONORRHOEAE RNA, TMA, UROGENITAL Routine 05/12/2025 6:02 PM EDT Abdominal pain in female patient POCT URINALYSIS DIPSTICK Routine 05/12/2025 5:23 PM EDT Abdominal pain in female patient THINPREP IMAGING PAP AND HPV MRNA E6/E7 WITH REFLEX TO HPV 16,18/45 Routine 01/02/2022 1:22 PM EDT MAMMOGRAM GENERIC Routine 12/15/2021 8:2 3 AM EST ZZZ HISTORICAL HIV AB/AG Routine 08/17/2021 10:05 AM EST from Last 3 Months or Most Recently Relevant to Health Maintenance Results * Bacterial Vaginosis (05/12/2025 6:02 PM EDT) TRICHOMONAS VAGINALIS DETECTION BY PCR NOT DETECTED Not Detect [facility] BACTERIAL VAGINOSIS DETECTION BY PCR NEGATIVE Negative [facility] Comment:The BV organism targ ets of the Xpert Xpress MVP test can becommensal in women; Xpert Xpress MVP positive results forbacterial vaginosis should be considered in conjunction withother clinical and patient information to determine thedisease status. Organisms that are not detected by the XpertXpress MVP test have also been reported to be associatedwith BV and aerobic vaginitis.The Xpert Xpress MVP test performance has not been evaluatedin patients under the age of 14. ROBERTA GROUP DETECTION BY PCR NOT DETECTED Not Detect [facility] Roberta glab krusei PCR NOT DETECTED Not Detect [facility] 05/12/2025 6:02 PM EDT 05/13/2025 11:40 AM EDT Maryam Cantu [facility] MICROBIOLOGY - [facility]ANG LINK Final Result [facility] [address] [place] [phone] * (ABNORMAL) Mycoplasma/Ureaplasma??Panel (05/12/2025 6:02 PM EDT) Suremikaylaab(R), Mycoplasma Hominis, Real-Time Pcr Detected(A ) Not Detected [facility] Comment:THIS TEST WAS PERFOR MED AT:[facility] [id number] [place] [address]TCIHUPBBARON FLANAGAN MD,PHD Mycoplasma Genitalium, rRNA,TMA Not Detected Not Detected [facility] Comment:THIS TEST WAS PERFOR MED AT:[facility] [id number] [place] [address]XPPIFFEBARON FLANAGAN MD,PHD U. Parvum DNA Detected(A ) Not Detected [facility] U. Urealyticum DNA Not Detected Not Detected [facility] Comment:This test was develo ped and its analyticalperformance characteristics have been determinedby [facility] [place], [place].It has not been cleared or approved by the FDA. Thisassay has been validated pursuant to the CLIAregulations and is used for clinical purposes.THIS TEST WAS PERFORMED AT:[facility] [id number] [place] [address]BISBPRUBARON FLANAGAN MD,PHD 05/12/2025 6:02 PM EDT 05/13/2025 12:01 PM EDT [facility] MICROBIOLOGY - [facility] Final Result [facility] [address] [place] [phone] * Chlamydia/N. Gonorrhoeae RNA, TMA, Vagina (05/12/2025 6:02 PM EDT) CT PCR NOT DETECTED Not Detect. [facility] Comment:A not detected test result does not exclude the possibilityof infection because test results can be affected byimproper specimen collection, concurrent antibiotic therapy,or the number of organisms in the specimen which may bebelow the sensitivity of the test. As with many diagnostictests, results from the Xpert CT/NG assay should beinterpreted in conjunction with other laboratory andclinical data available to the clinician.Xpert CT/NG performance has not been evaluated in patientsless than 14 years of age. The assay should not be used forthe evaluationof suspected sexual abuse or for other medico-legalindications. Additional testing is recommended in anycircumstance when false positive or false negative resultscould lead to adverse medical, social or psychologicalconsequences. NG PCR NOT DETECTED Not Detect. [facility] Comment:A not detected test result does not exclude the possibilityof infection because test results can be affected byimproper specimen collection, concurrent antibiotic therapy,or the number of organisms in the specimen which may bebelow the sensitivity of the test. As with many diagnostictests, results from the Xpert CT/NG assay should beinterpreted in conjunction with other laboratory andclinical data available to the clinician.Xpert CT/NG performance has not been evaluated in patientsless than 14 years of age. The assay should not be used forthe evaluationof suspected sexual abuse or for other medico-legalindications. Additional testing is recommended in anycircumstance when false positive or false negative resultscould lead to adverse medical, social or psychologicalconsequences. Swab Vaginal structure / Unknown 05/12/2025 6:02 PM EDT 05/13/2025 11:41 AM EDT [facility] MICROBIOLOGY - [facility] Final Result Performing Organization Address [facility] Co de Phone Number [facility] [address] [place] [phone] * Culture, Urine, Routine (05/12/2025 6:02 PM EDT) Urine Urine specimen obtained by clean catch procedure / Unknown 05/12/2025 6:02 PM EDT 05/13/2025 11:44 AM EDT Comment:UACC Narrative [facility] - 05/15/2025 12:43 PM EDT Urine Culture No growth. Specimen Source: Urine clean catch [facility] MICROBIOLOGY - [facility] Final Result Performing Organization Address [facility] Co de Phone Number [facility] [address] [place] [phone] * (ABNORMAL) POCT Urinalysis (05/12/2025 5:23 PM [...] Media Lot # [id number] Lot# Expiration Date 1366,321 Urine 05/12/2025 5:23 PM EDT Maryam Cantu [...] was manually screened according to routine procedures. Cutter Apprentice Hand: SEE COMMENT [facility] Comment: ED, CT(ASCP) CT screening location: [place] [address] HPV nRNA E6/E7 Not Detected Not Detected [facility] Comment: Methodology: Regulator Inspector-Mediated Amplification This assay detects E6/E7 viral messenger RNA (mRNA) from 14 high-risk HPV types (16,18,31,33,35,39,45,51,52,56,58,59,66,68). The analytical performance characteristics of this assay have been determined by [employer]. The modifications have not been cleared or approved by the FDA. This assay has been validated pursuant to the CLIA regulations and is used for clinical purposes. For additional information, please refer to http://education.[employer].Zonoff/faq/CJI091m8 (This link if provided for information/ educational purposes only.) Interpretation/Re sult: Negative for intraepithelial lesion or malignancy. [facility] LMP: NONE [facility] Prev. BX: NONE [facility] Prev. PAP: NONE [facility] SOURCE: None given [facility] Statement Of Adequacy: SEE COMMENT [facility] Comment: Satisfactory for evaluation. Endocervical/transformation zone component present. Partially obscuring inflammation Age and/or menstrual status not provided 01/02/2022 1:22 PM EDT Socorro Rodríguez CNM LAB PATHOLOGY ORDERABLES Final Result Performing Organization Address [facility] Co de Phone Number [facility] [address] * Mammography Report 1 (12/15/2021 8:23 [...] HIV AB/AG (08/17/2021 10:05 AM EST) Pathologist [facility] HIV AB/AG Nonreactive Nonreactive [facility] Comment: HIV-1 p24 Ag and/or [...] of detection of this assay. The Bejar[employer] Facetor HIV Ag/Ab Combo assay result and supplemental assay results should be interpreted in conjunction with the patient's clinical presentation, history and other laboratory results. If the results are inconsistent with clinical evidence, additional testing is suggested to confirm the result. 08/17/2021 10:0 5 AM EST Charlotte Hernandez MD HISTORICAL/NON ORDERABLE LABS Fi nal Result Performing Organization Address [facility] Co de Phone Number [facility] [address] from Last 3 Months or Most Recently Relevant to Health Maintenance Insurance * Guarantor: Eloina Clancy Account Type Relation to Patient Date of Phone Billing Address Personal/Family Self [address] [place] Care Teams Bundle Clerk Relationship Specialty Start Date End Date Charlotte Hernandez MD [address] [place] [phone] PCP - General Family Medicine 09/01/18
--- OUTSIDE RECORDS SUMMARY | 2025-06-17 12:19 | XMS_ITS | Clinical Summary ---
Author Organization [facility] ity Address [address] [place] [address] Care Team Providers Care Catering Driver Name Role Phone Vishnu Tellez MD Primary [...] 2023 Zoster Vaccines (1 of 2) 2023 Depression Screening 10/07/2024 COVID-19 Vaccine (1 - 2023-2 5 season) 2025 Influenza Vaccine (#1) 2025 HIB Vaccines Aged [...] age to complete this topic Care Teams Catering Driver Relationship Specialty Start Date End Date Vishnu Tellez MD PCP - General Internal Medicine 06/24/18
--- OUTSIDE RECORDS SUMMARY | 2025-06-17 12:19 | XMS_ITS | Encounter Summary ---
Author Organization [employer] Address [address] [facility] [address] [place] [address] Care Team Providers Care Styrene Dehydration Reactor Operator Name Role Phone Charlotte Hernandez MD Primary Care Provider [phone] Reason for Visit * Reason Onset Date Comments Chart Prep 06/15/2025 Encounter Details Date Type Department Care Team ([facility] st Contact Info) Description 06/15/2025 Telephone [facility] [address] [place] [address] Charlotte Hernandez MD [address] [place] [address] Chart Prep Social History Tobacco Use Types Packs/Day Years [...] AM EDT documented as of this encounter Miscellaneous Notes * Telephone Encounter - Angela Martinez MA - 06/15/2025 11:52 AM EDT Chart Prep Labs: done Images: done Referrals: not done Vaccines due: PCV20, Hep B, and Zoster Screenings: colonoscopy, mammogram, and LMP Overdue care gaps: Tobacco documented in this encounter Plan of Treatment Not on file documented as of this encounter Visit Diagnoses Not on filedocumented in this encounter Additional Health Concerns Assessment Noted Time PHQ-9 Depression Total Score: 0 09/16/20 24 10:04 AM EST documented as of this encounter Care Teams Styrene Dehydration Reactor Operator Relationship Specialty Start Date End Date Charlotte Hernandez MD [address] [place] [phone] PCP - General Family Medicine 09/01/18 documented as of this encounter
[2025-06-17 14:55] LABS: Alanine Aminotransferase 25 U/L (0-31); Albumin Level 4.2 g/dL (3.5-5.0); Alkaline Phosphatase 75 U/L (39-117); Anion Gap 9 (12-20); Aspartate Amino Transferase 25 U/L (5-31); Blood Urea Nitrogen 13 mg/dL (9-16); Calcium 9.3 mg/dL (8.4-10.2); Carbon Dioxide 31 mmol/L (22-29); Chloride 107 mmol/L (96-108); Cholesterol 175 mg/dL (<200); Estimated Glomerular Filt Rate > 60; HDL Cholesterol 55 mg/dL (>40); Potassium 3.8 mmol/L (3.3-5.1); Sodium 143 mmol/L (135-145); Total Protein 7.1 g/dL (6.5-8.0); Triglycerides 110 mg/dL (<150)
== END 2025-06-17 10:07 | disposition home or self-care (01) ==
LOC: HO.CHCLDS 10:06
PROVIDERS: Visit Provider Student in an Organized Health Care Education/Training Program
DX: E66.811 Obesity, class 1 (principal)
CPT/HCPCS: 36415; 80048; 80061; 80076

== ENCOUNTER 2025-06-23 11:55 | Outpatient (REF) | payer OTHER, SELFPAY ==
--- OUTSIDE RECORDS SUMMARY | 2025-06-23 15:24 | XMS_ITS | Clinical Summary ---
Author Organization [employer] Address [address] [facility] [address] [place] [address] Care Team Providers Care Analytics Intern Name Role Phone Charlotte Hernandez MD Primary Care Provider [phone] Allergies Active Allergy Reactions Criticality Noted Date [...] Description 06/17/2025 9:45 AM EDT Office Visit [facility] [address] [place] [address] Charlotte Hernandez MD Gastroesophageal reflux disease without esophagitis (Primary Dx); Class 1 obesity without serious comorbidity in adult, unspecified BMI, unspecified obesity type; Encounter for screening for malignant neoplasm of colon 06/16/2025 Travel 06/15/2025 Telephone [facility] [address] [place] [address] Charlotte Hernandez MD Chart Prep 06/09/2025 Patient Outreach [facility] [address] [place] [phone] Charlotte Hernandez MD Pre-visit Planning (Pre visit planning LVM ) 05/14/2025 Results Follow-Up [facility] [address] [place] [phone] Maryam Cantu NP Bacterial Vaginosis, Mycoplasma/Ureaplasma Panel 05/12/2025 5:20 PM EDT Office Visit [facility] [address] [place] [phone] Maryam Cantu NP Pelvic pain (Primary Dx); Abdominal pain in female patient; Other microscopic hematuria 05/12/2025 Travel 05/12/2025 Telephone [facility] [address] [place] [address] Charlotte Hernandez MD Nurse Triage from Last [...] 01/02/2027 01/02/2022, 09/02/2018 Pap Smear 01/02/2027 01/02/2022 Lipid Panel 06/17/2030 06/17/2025 DTaP/Tdap/Td Vaccines (2 - Td or Tdap) [...] Procedure Name Priority Date/Time Associated Diagnosis Comments HEPATIC FUNCTION PANEL Routine 06/17/2025 10:08 AM EDT Class 1 obesity without serious comorbidity in adult, unspecified BMI, unspecified obesity type LIPID PANEL, STANDARD Routine 06/17/2025 10:08 AM EDT Class 1 obesity without serious comorbidity in adult, unspecified BMI, unspecified obesity type BASIC METABOLIC PANEL Routine 06/17/2025 10:08 AM EDT Class 1 obesity without serious comorbidity in adult, unspecified BMI, unspecified obesity type MYCOPLASMA/UREAPLASM A PANEL Routine 05/12/2025 6:02 PM [...] Recently Relevant to Health Maintenance Results * Hepatic Function Panel (06/17/2025 10:08 AM EDT) Bilirubin, Total 0.8 0.0 - 1.0 mg/dL [facility] Bilirubin, Direct 0.2 0.0 - 0.5 mg/dL [facility] Aspartate Amino Transferase 25 5 - 31 U/L [facility] Alanine Aminotransferase 25 0 - 31 U/L [facility] Total Protein 7.1 6.5 - 8.0 g/dL [facility] Albumin Level 4.2 3.5 - 5.0 g/dL [facility] Alkaline Phosphatase 75 39 - 117 U/L [facility] Blood Venous blood specimen / Unknown 06/17/2025 10:08 AM EDT 06/17/2025 2:14 PM EDT us Charlotte Hernandez MD LAB BLOOD ORDERABLES Final Resul t [facility] [address] [place], [place] [phone] * Lipid Panel, Standard (06/17/2025 10:08 AM EDT) Triglycerides 110 <150 mg/dL [facility] Comment:Desirable Triglyceri de: less than 150 mg/dLBorderline High Triglyceride 150-199 mg/dLHigh Triglyceride: 200-499 mg/dLVery High Triglyceride: greater than or equal to 5OO mg/dL Cholesterol 175 <200 mg/dL [facility] Comment:Desirable Cholestero l: less than 200 mg/dLBorderline High Cholesterol: 200-239 mg/dLHigh Cholesterol: greater than 239 mg/dL LDL Cholesterol Calculated 98 <100 mg/dL [facility] Comment:Desirable LDL: less than 100 mg/dLNear Optimal/Above Optimal LDL: 110- 129 mg/dLBorderline High LDL: 130-159 mg/dLHigh LDL: 160-189 mg/dLVery High LDL: greater than or equal to 190 mg/dL HDL Cholesterol 55 >40 mg/dL [facility] Comment:Desirable HDL: great er than 40 mg/dL Note: This HDL assay may give artificially low results in patients with liver disease. Blood Venous blood specimen / Unknown 06/17/2025 10:08 AM EDT 06/17/2025 2:14 PM EDT us Charlotte Hernandez MD LAB BLOOD ORDERABLES Final Resul t [facility] [address] [place], [place] [phone] * (ABNORMAL) Basic Metabolic Panel (06/17/2025 10:08 AM EDT) Sodium 143 135 - 145 mmol/L [facility] Potassium 3.8 3.3 - 5.1 mmol/L [facility] Chloride 107 96 - 108 mmol/L [facility] Carbon Dioxide 31(H) 22 - 29 mmol/L [facility] Anion Gap 9(L) 12 - 20 [facility] Urea Nitrogen (BUN) 13 9 - 16 mg/dL [facility] Creatinine, Serum 0.80 0.5 - 1.4 mg/dL [facility] Estimated Glomerular Filt Rate >60 [facility] Comment:Chronic Kidney Disea se: Estimated GFR < 60 mL/min/1.81g8Mcktaj Kidney Disease: Estimated GFR < 15 mL/min/1.73m2 Glucose 65 60 - 115 mg/dL [facility] Calcium 9.3 8.4 - 10.2 mg/dL [facility] Blood Venous blood specimen / Unknown 06/17/2025 10:08 AM EDT 06/17/2025 2:14 PM EDT us Charlotte Hernandez MD LAB BLOOD ORDERABLES Final Resul t Performing Organization Address [facility] Co de Phone Number [facility] [address] [place] [phone] * Bacterial Vaginosis (05/12/2025 6:02 PM EDT) TRICHOMONAS VAGINALIS DETECTION BY PCR NOT DETECTED Not Detect [facility] BACTERIAL VAGINOSIS DETECTION BY PCR NEGATIVE Negative [facility] Comment:The BV organism targ ets [...] DETECTION BY PCR NOT DETECTED Not Detect [facility] Roberta glab krusei PCR NOT DETECTED Not Detect [facility] 05/12/2025 6:02 PM EDT 05/13/2025 11:40 AM EDT Maryam Cantu NP LAB MICROBIOLOGY - GENERAL [employer] Final Result Performing Organization Address [facility] Co de Phone Number [facility] [address] [place] [phone] * (ABNORMAL) Mycoplasma/Ureaplasma??Panel (05/12/2025 6:02 PM EDT) Sureswab(R), Mycoplasma Hominis, Real-Time Pcr Detected(A ) Not Detected [facility] Comment:THIS TEST WAS PERFOR MED AT:[employer]/[id number] [place] [address]KZNJGPXBARON FLANAGAN MD,PHD Mycoplasma Genitalium, rRNA,TMA Not Detected Not Detected [facility] Comment:THIS TEST WAS PERFOR MED AT:[employer]/[place] [id number] [place] [address]OZVQHLFBARON FLANAGAN MD,PHD U. Parvum DNA Detected(A ) Not Detected [facility] U. Urealyticum DNA Not Detected Not Detected [facility] Comment:This test was develo ped and its analyticalperformance characteristics have been determinedby [employer] [place], [place].It has not been cleared or approved by the FDA. Thisassay has been validated pursuant to the CLIAregulations and is used for clinical purposes.THIS TEST WAS PERFORMED AT:[employer] [id number] [place] [address]RAVIGMSBARON FLANAGAN MD,PHD 05/12/2025 6:02 PM EDT 05/13/2025 12:[address] [facility] REPORTING PROCESS CONSULTANT LAB MICROBIOLOGY - GENERAL [facility] Final Result [facility] [address] [place] [phone] * Chlamydia/N. Gonorrhoeae RNA, TMA, Vagina (05/12/2025 6:02 PM EDT) CT PCR NOT DETECTED Not Detect. [facility] Comment:A not detected test result [...] psychologicalconsequences. NG PCR NOT DETECTED Not Detect. [facility] Comment:A not detected test result [...] 6:02 PM EDT 05/13/2025 11:41 AM EDT [facility] LAB MICROBIOLOGY - GENERAL [facility] Final Result Performing Organization Address City/[facility] Co de Phone Number [facility] [address] [place] [phone] * Culture, Urine, Routine (05/12/2025 6:02 PM EDT) Urine Urine specimen obtained by clean catch procedure / Unknown 05/12/2025 6:02 PM EDT 05/13/2025 11:44 AM EDT Comment:UACC Narrative [facility] - 05/15/2025 12:43 PM EDT Urine Culture No growth. Specimen Source: Urine clean catch [facility] LAB MICROBIOLOGY - GENERAL [facility] Final Result Performing Organization Address [facility] Co de Phone Number [facility] [address] [place] [phone] * (ABNORMAL) POCT Urinalysis (05/12/2025 5:23 [...] Media Lot # [id number] Lot# Expiration Date [id number] Urine 05/12/2025 5:2 3 PM EDT Maryam Cantu NP POINT OF [...] was manually screened according to routine procedures. Medication Specialist: SEE COMMENT [facility] Comment: ED, CT(ASCP) CT screening location: [place] [address] HPV nRNA E6/E7 Not Detected Not Detected [facility] Comment: Methodology: Ordnance Technician-Mediated Amplification This assay detects E6/E7 viral messenger RNA (mRNA) from 14 high-risk HPV types (16,18,31,33,35,39,45,51,52,56,58,59,66,68). The analytical performance characteristics of this assay have been determined by [employer]. The modifications have not been cleared or approved by the FDA. This assay has been validated pursuant to the CLIA regulations and is used for clinical purposes. For additional information, please refer to http://education.[employer].yuilop SL/faq/BKC302t8 (This link if provided for information/ educational [...] provided 01/02/2022 1:22 PM EDT Socorro Rodríguez [facility] PATHOLOGY ORDERABLES Final Result [facility] [address] * Mammography Report 1 (12/15/2021 8:23 [...] of detection of this assay. The [employer] HIV Ag/Ab Combo assay result and supplemental assay results should be interpreted in conjunction with the patient's clinical presentation, history and other laboratory results. If the results are inconsistent with clinical evidence, additional testing is suggested to confirm the result. 08/17/2021 10:0 5 AM EST us Charlotte Hernandez MD HISTORICAL/NON ORDERABLE LABS Fi nal Result [facility] [address] [place] [address], from Last 3 Months or Most Recently Relevant to Health Maintenance Insurance * Guarantor: Eloina Clancy Account Type Relation to Patient Date of Phone Billing Address Personal/Family Self [address] [facility] Simone MACK [place] Care Teams Analytics Intern Relationship Specialty Start Date End Date Charlotte Hernandez MD [address] [place] [phone] PCP - General Family Medicine 09/01/18
== END 2025-06-23 11:56 | disposition home or self-care (01) ==
LOC: HO.CHCLNP 11:55
PROVIDERS: Visit Provider Student in an Organized Health Care Education/Training Program
DX: K21.9 Gastro-esophageal reflux disease without esophagitis (principal)
CPT/HCPCS: 87338